=== PATIENT | male | born 1985 | race Two or more races ===

== ENCOUNTER 2025-02-12 12:26 | Emergency (ER) | payer MEDICAID, SELFPAY ==
[~2025-02-12] VITALS: Ht 172.7 cm; Wt 64.9 kg
[2025-02-12 13:15] LABS: PLATELET COUNT, AUTOMATED 328 10^3/uL (150-450)
[2025-02-12 13:32] LABS: PHENCYCLIDINE URINE NEGATIVE (NEGATIVE)
[2025-02-12 13:33] LABS: AMPHETAMINES LEVEL URINE NEGATIVE (NEGATIVE); BARBITURATES URINE NEGATIVE (NEGATIVE); BENZODIAZEPINES URINE NEGATIVE (NEGATIVE); COCAINE METABOLITE URINE NEGATIVE (NEGATIVE); METHADONE URINE NEGATIVE (NEGATIVE); OPIATES URINE NEGATIVE (NEGATIVE)
[2025-02-12 13:38] LABS: CANNABINOIDS URINE POSITIVE (NEGATIVE)
[2025-02-12 13:38] LABS: ALT/SGPT 30 U/L (7.0-40); AST/SGOT 44 U/L (<34); CALCIUM LEVEL 8.3 MG/DL (8.5-10.1); CARBON DIOXIDE LEVEL 26 MMOL/L (20-31); CHLORIDE LEVEL 110 MMOL/L (98-107); CREATININE FOR GFR 0.77 MG/DL (0.70-1.30); GLOMERULAR FILTRATION RATE > 90.0 (>60); POTASSIUM SERUM 3.5 MMOL/L (3.5-5.1); SALICYLATE LEVEL < 3.0 MG/DL (<30); SODIUM LEVEL 147 MMOL/L (136-145)
[2025-02-12] MEDS: THIAMINE 100 MG TAB PO SCH (13:46)
[2025-02-12] MEDS: OLANZapine ORAL DISINTEGRATING TAB 5MG PO ONE (13:46)
[2025-02-12] MEDS: MULTIVITAMINS/MINERALS THERAP 1 TAB PO SCH (13:46)
[2025-02-12] MEDS: FOLIC ACID 1 MG TAB PO SCH (13:46)
[2025-02-12 13:59] LABS: ETHYL ALCOHOL (ETHANOL) 0.398 % (0.000-0.010)
[2025-02-13] MEDS ORDERED: HOME MED LIST COMPLETE! XX SCH (10:20)
[2025-02-13 15:44] VITALS: BP 131/71; TEMP 97.8; O2SAT 97
== END 2025-02-13 16:08 | disposition home or self-care (01) ==
LOC: EDBD → M ED 12:26 → EDBD 12:26 → CANBEDREQ 02-13 15:16 → M ED 02-13 16:08
DX: R45.851 Suicidal ideations (principal); F32.A Depression, unspecified

== ENCOUNTER 2025-02-13 21:26 | Emergency (ER) | payer SELFPAY ==
[2025-02-13 22:48] LABS: PLATELET COUNT, AUTOMATED 310 10^3/uL (150-450)
[2025-02-13 23:16] LABS: ALT/SGPT 36 U/L (7.0-40); AST/SGOT 52 U/L (<34); CALCIUM LEVEL 8.3 MG/DL (8.5-10.1); CARBON DIOXIDE LEVEL 21 MMOL/L (20-31); CHLORIDE LEVEL 108 MMOL/L (98-107); CREATININE FOR GFR 0.61 MG/DL (0.70-1.30); GLOMERULAR FILTRATION RATE > 90.0 (>60); POTASSIUM SERUM 3.3 MMOL/L (3.5-5.1); SALICYLATE LEVEL < 3.0 MG/DL (<30); SODIUM LEVEL 143 MMOL/L (136-145)
[2025-02-13 23:38] LABS: ETHYL ALCOHOL (ETHANOL) 0.466 % (0.000-0.010)
[2025-02-13] MEDS: OLANZapine INTRAMUSCULAR 10MG VIAL IM ONE (23:49)
[2025-02-14 08:14] VITALS: BP 112/68; TEMP 98.6; O2SAT 100
[2025-02-14] MEDS: NICOTINE POLACRILEX 2 MG GUM PO ONE (08:51)
[2025-02-14 08:55] LABS: AMPHETAMINES LEVEL URINE NEGATIVE (NEGATIVE); BARBITURATES URINE NEGATIVE (NEGATIVE); BENZODIAZEPINES URINE NEGATIVE (NEGATIVE); COCAINE METABOLITE URINE NEGATIVE (NEGATIVE); METHADONE URINE NEGATIVE (NEGATIVE); OPIATES URINE NEGATIVE (NEGATIVE); PHENCYCLIDINE URINE NEGATIVE (NEGATIVE)
[2025-02-14 08:57] LABS: CANNABINOIDS URINE POSITIVE (NEGATIVE)
[2025-02-14] MEDS ORDERED: HOME MED LIST COMPLETE! XX SCH (14:30)
[2025-02-15] MEDS ORDERED: VENTAER INH (16:53)
[2025-02-15] MEDS ORDERED: PRED20TA PO (17:05)
== END 2025-02-14 17:12 | disposition home or self-care (01) ==
LOC: EDBD → M ED 21:26
DX: F10.129 Alcohol abuse with intoxication, unspecified (principal); Y90.8 Blood alcohol level of 240 mg/100 ml or more; F32.A Depression, unspecified; Z59.00 Homelessness unspecified
CPT/HCPCS: 36415; 80048; 80076; 80143; 80307; 82077; 84443; 85027; 96372; 99285; J2060; J2359

== ENCOUNTER 2025-02-15 02:17 | Inpatient (IN) | payer SELFPAY ==
[~2025-02-15] VITALS: Ht 172.7 cm; Wt 67.7 kg
[2025-02-15] MEDS: ALBUTEROL SULFATE 2.5 MG/0.5 ML INH CONCENTRATE NEB SOLN NEB ONE (03:07)
[2025-02-15] MEDS: IPRATROPIUM 0.5 MG/ALBUTEROL 2.5 MG INH SOL UD 3 ML NEB PRN (03:09)
[2025-02-15] MEDS: D5W/0.9% SODIUM CHLORIDE 1,000 ML IV ONE (03:14)
[2025-02-15 03:18] LABS: BASO # 0.1 10^3/uL (0.0-0.2); BASO % 1.8 % (0.0-1.0); EOS # 0.2 10^3/uL (0.0-0.5); EOS % 3.5 % (0.0-3.0); LYMPH # 2.5 10^3/uL (1.5-5.0); LYMPH % 49.7 % (24.0-44.0); MONO # 0.5 10^3/uL (0.0-0.8); MONO % 9.8 % (2.0-8.0); NEUTROPHILS # 1.8 10^3/uL (1.5-8.5); NEUTROPHILS % 35.2 % (36.0-66.0); PLATELET COUNT, AUTOMATED 338 10^3/uL (150-450)
[2025-02-15 03:30] LABS: VENOUS BASE EXCESS 0.3 (-2.0-2.0); VENOUS HCO3 23.8 MMOL/L (23.0-27.0); VENOUS O2 SATURATION 91.9 % (60.0-80.0); VENOUS PARTIAL PRESSURE CO2 35.4 mmHg (38.0-50.0); VENOUS PARTIAL PRESSURE O2 64.5 mmHg (30.0-50.0); VENOUS PH 7.446 UNITS (7.330-7.430); VENOUS STANDARD HCO3 24.6 MMOL/L; VENOUS TOTAL CO2 24.9 MMOL/L (24.0-28.0)
[2025-02-15 03:41] LABS: D-DIMER QUANT 0.38 ug/mL (<0.5); INR 0.93
[2025-02-15 03:42] LABS: ALT/SGPT 35 U/L (7.0-40); AST/SGOT 57 U/L (<34); CALCIUM LEVEL 8.9 MG/DL (8.5-10.1); CARBON DIOXIDE LEVEL 26 MMOL/L (20-31); CHLORIDE LEVEL 103 MMOL/L (98-107); CK-MB VALUE MASS 4.8 NG/ML (<3.6); CPK CREATINE PHOSPHOKINASE 536 U/L (46-171); CREATININE FOR GFR 0.84 MG/DL (0.70-1.30); GLOMERULAR FILTRATION RATE > 90.0 (>60); MB/CK RELATIVE INDEX 0.89 (< OR =4); POTASSIUM SERUM 3.5 MMOL/L (3.5-5.1); SODIUM LEVEL 141 MMOL/L (136-145)
[2025-02-15] MEDS: NS (Normal Saline) 0.9% 1,000 ML IV ONE ×2 (04:29→11:06)
[2025-02-15 05:24] LABS: MAGNESIUM LEVEL 1.6 MG/DL (1.8-2.4)
[2025-02-15] MEDS: NS (Normal Saline) 0.9% 1,000 ML IV SCH (06:53)
[2025-02-15] MEDS: cefTRIAXone SOD 1 GM in DEXTROSE 5% (D5W) ADV/MINI-BAG 50 ML IV ONE (06:56)
[2025-02-15] MEDS ORDERED: HOME MED LIST COMPLETE! XX SCH (07:50)
[2025-02-15] MEDS ORDERED: GLUCOSE 4 GM CHEW PO PRN (09:40)
[2025-02-15] MEDS ORDERED: DEXTROSE 50% 50 ML SYRINGE IV PRN (09:40)
[2025-02-15] MEDS ORDERED: GLUCAGON INJ 1 MG VIAL SC PRN (09:40)
[2025-02-15] MEDS ORDERED: ACETAMINOPHEN 325 MG TAB PO PRN (10:30)
[2025-02-15] MEDS: ENOXAPARIN 40 MG/0.4 ML SYRINGE (J1650 PER 10MG) SC SCH (10:58)
[2025-02-15] MEDS: MAG SULF 1GM/100ML (MAG RUN) 1 GM in IV 1 EA IV SCH (11:04)
[2025-02-15] MEDS: INSULIN LISPRO (NovoLOG) PER UNIT SC SCH (11:27)
[2025-02-15] MEDS: IPRATROPIUM 0.5 MG/ALBUTEROL 2.5 MG INH SOL UD 3 ML NEB SCH (12:06)
[2025-02-15 13:03] LABS: ESTIMATED AVERAGE GLUCOSE 91.0 MG/DL (60-110)
[2025-02-15] MEDS: MULTIVITAMIN -ADULT INJECTION 10 ML, THIAMINE INJection 100 MG, FOLIC ACID 1 MG in NS (... IV ONE (13:03)
[2025-02-15 13:27] VITALS: BP 125/78
[2025-02-15 13:30] VITALS: O2SAT 100
[2025-02-15 13:55] VITALS: TEMP 98.2
[2025-02-15] MEDS ORDERED: VENTAER INH (16:53)
[2025-02-15] MEDS ORDERED: PRED20TA PO (17:05)
[2025-02-15] MEDS ORDERED: INSULIN LISPRO (NovoLOG) PER UNIT SC SCH (21:00)
[2025-02-16] MEDS ORDERED: MULTIVITAMINS/MINERALS THERAP 1 TAB PO SCH (09:00)
[2025-02-16] MEDS ORDERED: FOLIC ACID 1 MG TAB PO SCH (09:00)
[2025-02-16] MEDS ORDERED: THIAMINE 100 MG TAB PO SCH (09:00)
== END 2025-02-15 17:55 | disposition other institution (70) | DRG 775 ==
LOC: M ED 02:17 → M ED INP 09:38
PROVIDERS: ADMIT Internal Medicine; ATTEND Internal Medicine
DX: F10.930 Alcohol use, unspecified with withdrawal, uncomplicated (principal); R45.851 Suicidal ideations; E87.20 Acidosis, unspecified; J45.901 Unspecified asthma with (acute) exacerbation; E83.42 Hypomagnesemia; E11.9 Type 2 diabetes mellitus without complications; R09.02 Hypoxemia; F12.90 Cannabis use, unspecified, uncomplicated; Z71.51 Drug abuse counseling and surveillance of drug abuser; Z79.52 Long term (current) use of systemic steroids

== ENCOUNTER 2025-02-15 21:16 | Emergency (ER) | payer MEDICAID, SELFPAY ==
[~2025-02-15] VITALS: Ht 182.9 cm; Wt 69.0 kg
[~2025-02-15 21:16] MED LIST: PRED20TA PO; VENTAER INH
[2025-02-15 22:02] LABS: BASO # 0.0 10^3/uL (0.0-0.2); BASO % 0.0 % (0.0-1.0); EOS # 0.0 10^3/uL (0.0-0.5); EOS % 0.0 % (0.0-3.0); LYMPH # 0.4 10^3/uL (1.5-5.0); LYMPH % 10.0 % (24.0-44.0); MONO # 0.1 10^3/uL (0.0-0.8); MONO % 1.5 % (2.0-8.0); NEUTROPHILS # 3.4 10^3/uL (1.5-8.5); NEUTROPHILS % 88.2 % (36.0-66.0); PLATELET COUNT, AUTOMATED 318 10^3/uL (150-450)
[2025-02-15 22:50] LABS: ALT/SGPT 35 U/L (7.0-40); AST/SGOT 50 U/L (<34); CALCIUM LEVEL 8.7 MG/DL (8.5-10.1); CARBON DIOXIDE LEVEL 15 MMOL/L (20-31); CHLORIDE LEVEL 114 MMOL/L (98-107); CREATININE FOR GFR 0.56 MG/DL (0.70-1.30); ETHYL ALCOHOL (ETHANOL) 0.497 % (0.000-0.010); GLOMERULAR FILTRATION RATE > 90.0 (>60); POTASSIUM SERUM 3.5 MMOL/L (3.5-5.1); SODIUM LEVEL 149 MMOL/L (136-145)
[2025-02-15 23:17] LABS: MAGNESIUM LEVEL 2.4 MG/DL (1.8-2.4)
[2025-02-15] MEDS: THIAMINE 200MG 2ML VIAL IV ONE (23:22)
[2025-02-15] MEDS: KCL 20MEQ IN 0.45NS 1000ML 1,000 ML IV SCH (23:23)
[2025-02-15 23:25] LABS: CPK CREATINE PHOSPHOKINASE 493 U/L (46-171)
[2025-02-15 23:44] LABS: VENOUS BASE EXCESS -8.5 (-2.0-2.0); VENOUS HCO3 16.4 MMOL/L (23.0-27.0); VENOUS O2 SATURATION 94.8 % (60.0-80.0); VENOUS PARTIAL PRESSURE CO2 32.7 mmHg (38.0-50.0); VENOUS PARTIAL PRESSURE O2 93.4 mmHg (30.0-50.0); VENOUS PH 7.319 UNITS (7.330-7.430); VENOUS STANDARD HCO3 17.6 MMOL/L; VENOUS TOTAL CO2 17.4 MMOL/L (24.0-28.0)
[2025-02-16] MEDS ORDERED: HALOPERIDOL LACTATE 5 MG/ML VIAL As Ordered ONE (04:27)
[2025-02-16] MEDS: HALOPERIDOL LACTATE 5 MG/ML VIAL IV ONE (04:38)
[2025-02-16] MEDS: diphenhydrAMINE 50 MG/ML VIAL IV STA (04:50)
[2025-02-16 05:24] LABS: CALCIUM LEVEL 7.8 MG/DL (8.5-10.1); CARBON DIOXIDE LEVEL 20 MMOL/L (20-31); CHLORIDE LEVEL 114 MMOL/L (98-107); CREATININE FOR GFR 0.56 MG/DL (0.70-1.30); GLOMERULAR FILTRATION RATE > 90.0 (>60); POTASSIUM SERUM 3.9 MMOL/L (3.5-5.1); SODIUM LEVEL 149 MMOL/L (136-145)
[2025-02-16 06:18] VITALS: TEMP 98.8
[2025-02-16 10:15] VITALS: BP 117/66
[2025-02-16 10:18] VITALS: O2SAT 100
== END 2025-02-16 11:09 | disposition home or self-care (01) ==
LOC: EDBD → M ED 21:16
DX: F10.129 Alcohol abuse with intoxication, unspecified (principal); R45.1 Restlessness and agitation; E11.9 Type 2 diabetes mellitus without complications; J45.909 Unspecified asthma, uncomplicated
CPT/HCPCS: 70450; 72125; 80047; 80048; 80053; 82077; 82550; 82803; 83735; 85025; 93005; 96374; 96375; 99285; J1200; J1630; J2060; J3411

== ENCOUNTER 2025-02-19 17:54 | Emergency (ER) | payer SELFPAY ==
[2025-02-19] MEDS: NS (Normal Saline) 0.9% 1,000 ML IV ONE ×2 (18:15→22:50)
[2025-02-19 18:24] LABS: BASO # 0.1 10^3/uL (0.0-0.2); BASO % 1.3 % (0.0-1.0); EOS # 0.3 10^3/uL (0.0-0.5); EOS % 4.6 % (0.0-3.0); LYMPH # 4.1 10^3/uL (1.5-5.0); LYMPH % 54.6 % (24.0-44.0); MONO # 0.5 10^3/uL (0.0-0.8); MONO % 7.1 % (2.0-8.0); NEUTROPHILS # 2.4 10^3/uL (1.5-8.5); NEUTROPHILS % 32.0 % (36.0-66.0); PLATELET COUNT, AUTOMATED 326 10^3/uL (150-450)
[2025-02-19 18:52] LABS: ALT/SGPT 21 U/L (7.0-40); AST/SGOT 25 U/L (<34); CALCIUM LEVEL 8.4 MG/DL (8.5-10.1); CARBON DIOXIDE LEVEL 28 MMOL/L (20-31); CHLORIDE LEVEL 110 MMOL/L (98-107); CREATININE FOR GFR 0.68 MG/DL (0.70-1.30); GLOMERULAR FILTRATION RATE > 90.0 (>60); MAGNESIUM LEVEL 2.1 MG/DL (1.8-2.4); POTASSIUM SERUM 3.5 MMOL/L (3.5-5.1); SALICYLATE LEVEL < 3.0 MG/DL (<30); SODIUM LEVEL 147 MMOL/L (136-145)
[2025-02-19 19:02] LABS: AMPHETAMINES LEVEL URINE NEGATIVE (NEGATIVE); BARBITURATES URINE NEGATIVE (NEGATIVE); BENZODIAZEPINES URINE NEGATIVE (NEGATIVE); COCAINE METABOLITE URINE NEGATIVE (NEGATIVE); METHADONE URINE NEGATIVE (NEGATIVE); OPIATES URINE NEGATIVE (NEGATIVE); PHENCYCLIDINE URINE NEGATIVE (NEGATIVE)
[2025-02-19 19:12] LABS: CANNABINOIDS URINE POSITIVE (NEGATIVE)
[2025-02-19 19:22] LABS: ETHYL ALCOHOL (ETHANOL) 0.514 % (0.000-0.010)
[2025-02-20 09:45] VITALS: BP 92/55; TEMP 97.8; O2SAT 100
== END 2025-02-20 09:45 | disposition home or self-care (01) ==
LOC: EDBD 17:54 → M ED 17:54
DX: F10.129 Alcohol abuse with intoxication, unspecified (principal); Y90.8 Blood alcohol level of 240 mg/100 ml or more; J45.909 Unspecified asthma, uncomplicated
CPT/HCPCS: 80053; 80143; 80307; 82077; 83735; 85025; 96361; 96374; 99285; J2060

== ENCOUNTER 2025-02-26 01:14 | Inpatient (IN) | payer SELFPAY ==
[~2025-02-26] VITALS: Ht 175.3 cm; Wt 65.8 kg
[2025-02-26 01:49] LABS: BASO # 0.1 10^3/uL (0.0-0.2); BASO % 1.1 % (0.0-1.0); EOS # 0.2 10^3/uL (0.0-0.5); EOS % 2.4 % (0.0-3.0); LYMPH # 2.9 10^3/uL (1.5-5.0); LYMPH % 46.3 % (24.0-44.0); MONO # 0.9 10^3/uL (0.0-0.8); MONO % 13.7 % (2.0-8.0); NEUTROPHILS # 2.3 10^3/uL (1.5-8.5); NEUTROPHILS % 36.3 % (36.0-66.0); PLATELET COUNT, AUTOMATED 336 10^3/uL (150-450)
[2025-02-26 02:13] LABS: SALICYLATE LEVEL < 3.0 MG/DL (<30)
[2025-02-26 02:14] LABS: ALT/SGPT 29 U/L (7.0-40); AST/SGOT 39 U/L (<34); CALCIUM LEVEL 9.2 MG/DL (8.5-10.1); CARBON DIOXIDE LEVEL 28 MMOL/L (20-31); CHLORIDE LEVEL 97 MMOL/L (98-107); CPK CREATINE PHOSPHOKINASE 183 U/L (46-171); CREATININE FOR GFR 0.69 MG/DL (0.70-1.30); GLOMERULAR FILTRATION RATE > 90.0 (>60); POTASSIUM SERUM 3.0 MMOL/L (3.5-5.1); SODIUM LEVEL 138 MMOL/L (136-145)
[2025-02-26] MEDS: NS (Normal Saline) 0.9% 1,000 ML IV ONE ×2 (02:25→10:20)
[2025-02-26] MEDS: THIAMINE 100 MG TAB PO SCH ×2 (02:25→20:23)
[2025-02-26 03:07] LABS: ETHYL ALCOHOL (ETHANOL) 0.402 % (0.000-0.010)
[2025-02-26 03:18] LABS: AMPHETAMINES LEVEL URINE NEGATIVE (NEGATIVE); BARBITURATES URINE NEGATIVE (NEGATIVE); BENZODIAZEPINES URINE NEGATIVE (NEGATIVE); COCAINE METABOLITE URINE NEGATIVE (NEGATIVE); METHADONE URINE NEGATIVE (NEGATIVE); OPIATES URINE NEGATIVE (NEGATIVE); PHENCYCLIDINE URINE NEGATIVE (NEGATIVE)
[2025-02-26 03:34] LABS: CANNABINOIDS URINE POSITIVE (NEGATIVE)
[2025-02-26] MEDS ORDERED: HOME MED LIST COMPLETE! XX SCH (06:55)
[2025-02-26] MEDS: POTASSIUM CHLORIDE 10MEQ SR TABLET PO ONE (08:33)
[2025-02-26] MEDS: FOLIC ACID 1 MG TAB PO SCH (09:05)
[2025-02-26] MEDS: MULTIVITAMINS/MINERALS THERAP 1 TAB PO SCH (09:05)
[2025-02-26] MEDS: KCL 10MEQ/100ML SWI (KRUN) 10 MEQ in IV 1 EA IV ONE (09:05)
[2025-02-26] MEDS: NICOTINE 21 MG/24 HR 1 EA TRANSDERMAL TD ONE (14:11)
[2025-02-26] MEDS: LORazepam 1 MG TAB PO ONE (15:45)
[2025-02-26] MEDS ORDERED: chlordiazePOXIDE 25 MG CAP PO PRN (15:50)
[2025-02-26] MEDS ORDERED: MOM 30 ML SUSPENSION UDC PO PRN (15:50)
[2025-02-26 18:02] VITALS: BP 117/76; TEMP 97.6; O2SAT 100
[2025-02-26] MEDS: chlordiazePOXIDE 25 MG CAP PO SCH (18:05)
[2025-02-26] MEDS ORDERED: NICOTINE 14 MG/24 HR TRANSDERMAL TD PRN (18:50)
[2025-02-26] MEDS: traZODone 50 MG TAB PO PRN (20:23)
[2025-02-26 22:01] VITALS: BP 117/85
[2025-02-27 06:12] VITALS: BP 119/72; TEMP 97.6; O2SAT 99
[2025-02-27 06:24] VITALS: BP 119/72
[2025-02-27] MEDS: ACETAMINOPHEN 325 MG TAB PO PRN (09:54)
[2025-02-27] MEDS: risperiDONE 0.5 MG TAB PO SCH (09:55)
[2025-02-27] MEDS: ESCITALOPRAM OXALATE 10 MG TABLET PO SCH (09:55)
[2025-02-27 10:00] VITALS: BP 122/86; TEMP 97.2; O2SAT 97
[2025-02-27] MEDS: ONDANSETRON 4MG TAB PO PRN (10:31)
[2025-02-27] MEDS ORDERED: ALBUTEROL 90 MCG/ACT 8 GM HFA INHALER INH PRN (10:35)
[2025-02-27] MEDS: MULTIVITAMINS/MINERALS THERAP 1 TAB PO SCH (11:17)
[2025-02-27] MEDS: FOLIC ACID 1 MG TAB PO SCH (11:17)
[2025-02-27] MEDS: POTASSIUM CHLORIDE 10MEQ SR TABLET PO ONE (11:22)
[2025-02-27] MEDS: IBUPROFEN 400 MG TAB PO PRN (11:23)
[2025-02-27 14:00] VITALS: BP_SYST 112; BP_SYST 122; BP_DIAS 64; BP_DIAS 67; TEMP 97.5; TEMP 97.6; O2SAT 100; O2SAT 98
[2025-02-27] MEDS: NICOTINE POLACRILEX 2 MG GUM PO PRN (15:39)
[2025-02-27 20:24] VITALS: BP 140/78
[2025-02-27] MEDS: chlordiazePOXIDE 25 MG CAP PO PRN (20:38)
[2025-02-27] MEDS: RAMELTEON 8 MG TAB PO SCH (20:40)
[2025-02-27] MEDS: chlordiazePOXIDE 25 MG CAP PO SCH (21:34)
[2025-02-28 00:30] VITALS: BP 136/82
[2025-02-28 06:20] VITALS: BP 119/62; TEMP 97.2; O2SAT 100
[2025-02-28 07:44] LABS: CALCIUM LEVEL 9.0 MG/DL (8.5-10.1); CARBON DIOXIDE LEVEL 27 MMOL/L (20-31); CHLORIDE LEVEL 105 MMOL/L (98-107); CREATININE FOR GFR 0.76 MG/DL (0.70-1.30); GLOMERULAR FILTRATION RATE > 90.0 (>60); MAGNESIUM LEVEL 1.6 MG/DL (1.8-2.4); POTASSIUM SERUM 4.0 MMOL/L (3.5-5.1); SODIUM LEVEL 140 MMOL/L (136-145)
[2025-02-28 16:39] VITALS: BP 114/70; TEMP 97.5; O2SAT 100
[2025-02-28] MEDS: chlordiazePOXIDE 25 MG CAP PO SCH (21:33)
[2025-02-28 22:17] VITALS: BP 130/78
[2025-03-01 06:30] VITALS: BP 112/71; TEMP 97; O2SAT 96
[2025-03-01] MEDS: MAALOX 30 ML SUSP *UDC PO PRN (11:03)
[2025-03-01 14:30] VITALS: BP 136/77
[2025-03-01 15:07] VITALS: BP 136/77; TEMP 98.1; O2SAT 99
[2025-03-01] MEDS: chlordiazePOXIDE 25 MG CAP PO ONE (17:39)
[2025-03-02 08:03] VITALS: BP 127/78; TEMP 97.2; O2SAT 100
[2025-03-02] MEDS: chlordiazePOXIDE 25 MG CAP PO ONE (08:13)
[2025-03-02] MEDS ORDERED: RISP0.5T82 PO (08:54)
[2025-03-02] MEDS ORDERED: LEXA1TAB PO (08:54)
[2025-03-02] MEDS ORDERED: RAME8TAB2 PO (08:54)
[2025-03-02] MEDS ORDERED: chlordiazePOXIDE 25 MG CAP PO SCH (09:00)
[2025-03-03] MEDS ORDERED: chlordiazePOXIDE 25 MG CAP PO SCH (09:00)
== END 2025-03-02 10:10 | disposition home or self-care (01) | DRG 751 ==
LOC: M ED 01:14 → EDBD 01:14 → M ED INP 16:13 → EDBD 16:13 → M PSY 17:36
PROVIDERS: ADMIT General Practice; ATTEND General Practice
DX: F33.2 Major depressive disorder, recurrent severe without psychotic features (principal); R45.851 Suicidal ideations; F10.220 Alcohol dependence with intoxication, uncomplicated; E87.6 Hypokalemia; J45.909 Unspecified asthma, uncomplicated; Z59.00 Homelessness unspecified; Z63.0 Problems in relationship with spouse or partner; Z56.0 Unemployment, unspecified